=== PATIENT | female | born 1985 | race Caucasian/White ===

== ENCOUNTER 2019-05-06 21:39 | Emergency (ER) | payer BC ==
[~2019-05-06] VITALS: Ht 160 cm; Wt 59.0 kg
[~2019-05-06 21:39] MED LIST: AMBIEN10 MG ORAL; ATIVAN2 MG ORAL; IBUPROFEN600 MG ORAL; LEXAPRO10 MG ORAL; NITROFURANTOIN100 M2 ORAL; XANAX2 MG ORAL; ZOFRAN ODT4 MG ORAL
[2019-05-06 21:41] VITALS: BP 138/62
--- NOTE | 2019-05-06 21:41 | NUR ---
ED Nurse Note: Walk-in patient presents with complaints of cough and vomiting. Patient, accompanied by her mother, is A&Ox4, ambulatory with steady gait. Will continue to monitor.
[2019-05-06 22:39] LABS: APPEARANCE,URINE CLEAR; BASOPHILS % (AUTO) 0.7 % (0.0-2.0); BILIRUBIN, URINE NEGATIVE (NEGATIVE); COLOR,URINE PALE YELLOW; EOSINOPHILS % (AUTO) 1.2 % (0.0-3.0); GLUCOSE, URINE (UA) NEGATIVE (NEGATIVE); HEMATOCRIT 39.9 % (37.0-47.0); HEMOGLOBIN 14.6 G/DL (12.0-16.0); KETONES,URINE NEGATIVE (NEGATIVE); LEUKOCYTE ESTERASE ,URINE NEGATIVE (NEGATIVE); LYMPHOCYTES % (AUTO) 34.3 % (20.0-45.0); MEAN CORPUSCULAR VOLUME 87 FL (80-99); MONOCYTES % (AUTO) 8.4 % (1.0-10.0); NEUTROPHILS % (AUTO) 55.5 % (45.0-75.0); NITRITE,URINE NEGATIVE (NEGATIVE); PH,URINE 6 (4.5-8.0); PLATELET COUNT 272 K/UL (150-450); PROTEIN,URINE NEGATIVE (NEGATIVE); RED CELL DISTRIBUTION WIDTH 9.5 % (11.6-14.8); UROBILINOGEN,URINE NORMAL MG/DL (0.0-1.0); WHITE BLOOD COUNT 8.4 K/UL (4.8-10.8)
[2019-05-06 22:50] LABS: ANION GAP 11 mmol/L (5-15); BLOOD UREA NITROGEN 9 mg/dL (7-18); CALCIUM 8.7 MG/DL (8.5-10.1); CARBON DIOXIDE 23 MMOL/L (21-32); CHLORIDE 110 MMOL/L (98-107); CREATININE 0.8 MG/DL (0.55-1.30); POTASSIUM 3.6 MMOL/L (3.5-5.1); SODIUM 144 MMOL/L (136-145)
[2019-05-06 22:55] LABS: ALANINE AMINOTRANSFERASE 29 U/L (12-78); ALBUMIN 3.8 G/DL (3.4-5.0); ALBUMIN/GLOBULIN RATIO 1.1 (1.0-2.7); ALKALINE PHOSPHATASE 67 U/L (46-116); ASPARTATE AMINO TRANSFERASE 13 U/L (15-37); BILIRUBIN,TOTAL 0.3 MG/DL (0.2-1.0)
--- NOTE | 2019-05-06 23:02 | Emergency Room Report ---
History of Present Illness General Chief Complaint: General Complaint Source: Patient Present Illness HPI 33-year-old female presents ED for evaluation. Complaining of cough and congestion for the last 2 weeks. States that every time she coughs she throws up. Cough is productive with whitish phlegm. Denies pain. Denies fevers chills. Also states that she is been feeling tingling sensations in her legs and her face. Comes and goes. States she was seen by a neurologist and prescribed gabapentin. States that it did help with her symptoms. States she does have anxiety and has been detoxed from benzos. Denies drug use at this time. No other aggravating relieving factors. Denies any other associated symptoms Allergies: Coded Allergies: No Known Allergies (Unverified , 05/14/13) Patient History Past Medical History: psych hx Past Surgical History: none Pertinent Family History: none Social History: Denies: smoking, alcohol use, drug use Last Menstrual Period: 05/05/19 Now: No Immunizations: UTD Reviewed Nursing Documentation: PMH: Agreed; PSxH: Agreed Nursing Documentation-PMH Past Medical History: No Stated History Hx Seizures: Yes Review of Systems All Other Systems: negative except mentioned in HPI Physical Exam Vital Signs Date Time Temp Pulse Resp B/P (MAP) Pulse Ox O2 Delivery O2 Flow Rate FiO2 05/06/19 21:41 98.2 122 16 138/62 (87) 100 Room Air Sp02 EP Interpretation: reviewed, normal General Appearance: no apparent distress, alert, GCS 15, non-toxic Head: normocephalic, atraumatic Eyes: bilateral eye normal inspection, bilateral eye PERRL ENT: hearing grossly normal, normal pharynx, no angioedema, normal voice Neck: full range of motion, supple/symm/no masses Respiratory: chest non-tender, lungs clear, normal breath sounds, speaking full sentences Cardiovascular #1: regular rate, rhythm, no edema Cardiovascular #2: 2+ carotid (R), 2+ carotid (L), 2+ radial (R), 2+ radial (L) , 2+ dorsalis pedis (R), 2+ dorsalis pedis (L) Gastrointestinal: normal bowel sounds, non tender, soft, non-distended, no guarding, no rebound Rectal: deferred Genitourinary: normal inspection, no CVA tenderness Musculoskeletal: back normal, gait/station normal, normal range of motion, non- tender Neurologic: alert, oriented x3, responsive, motor strength/tone normal, sensory intact, speech normal Psychiatric: judgement/insight normal, memory normal, mood/affect normal, no suicidal/homicidal ideation, anxious Reflexes: 3+ bicep (R), 3+ bicep (L), 3+ tricep (R), 3+ tricep (L), 3+ knee (R) , 3+ knee (L) Lymphatic: no adenopathy Medical Decision Making Diagnostic Impression: Primary Impression: Anxiety Additional Impressions: Gastritis Qualified Codes: K29.20 - Alcoholic gastritis without bleeding Atypical pneumonia ER Course Hospital Course 33 yo F presents with cough x 3 weeks, vomiting. tingling sensation to feet and face. Differential diagnoses include: anxiety, dehydration, atypical pneumonia, gastritis Clinical course Patient placed on stretcher. on threat monitoring analyst. After initial history and physical I ordered labs, chest x-ray, zofran, pepcid labs reviewed- no leukocytosis, hemoglobin/hematocrit stable, troponins negative , electrolytes okay, UA negative, UDS negative, + ETOH CXR - no focal consolidation, no acute process Upon reassessment patient is observed feeling better. Discussed findings with patient and mother. Labs unremarkable. Vitals stable. No focal consolidation. I do believe her symptoms are likely related to her anxiety however given history of a persistent cough we will treat with antibiotics. Patient states she will follow-up with her psychiatrist I. I feel this is a highly complex case requiring extensive working including EKG/Rhythm strip, Xray/CT/US, Blood/urine lab work, repeat exams while in ED, and administration of strong opiates/narcotics for pain control, admission to hospital or close patient follow up. Diagnosis - anxiety, gastritis, atypical pneumonia Stable and discharged to home with Rx amoxicillin, zantac, zofran. Followup with PMD. Return to ED if symptoms recur or worse Labs Test 05/06/19 22:25 White Blood Count 8.4 K/UL (4.8-10.8) Red Blood Count 4.60 M/UL (4.20-5.40) Hemoglobin 14.6 G/DL (12.0-16.0) Hematocrit 39.9 % (37.0-47.0) Mean Corpuscular Volume 87 FL (80-99) Mean Corpuscular Hemoglobin 31.8 PG (27.0-31.0) Mean Corpuscular Hemoglobin Concent 36.6 G/DL (32.0-36.0) Red Cell Distribution Width 9.5 % (11.6-14.8) Platelet Count 272 K/UL (150-450) Mean Platelet Volume 8.4 FL (6.5-10.1) Neutrophils (%) (Auto) 55.5 % (45.0-75.0) Lymphocytes (%) (Auto) 34.3 % (20.0-45.0) Monocytes (%) (Auto) 8.4 % (1.0-10.0) Eosinophils (%) (Auto) 1.2 % (0.0-3.0) Basophils (%) (Auto) 0.7 % (0.0-2.0) Urine Color Pale yellow Urine Appearance Clear Urine pH 6 (4.5-8.0) Urine Specific Currie 1.010 (1.005-1.035) Urine Protein Negative (NEGATIVE) Urine Glucose (UA) Negative (NEGATIVE) Urine Ketones Negative (NEGATIVE) Urine Blood 3+ (NEGATIVE) Urine Nitrite Negative (NEGATIVE) Urine Bilirubin Negative (NEGATIVE) Urine Urobilinogen Normal MG/DL (0.0-1.0) Urine Leukocyte Esterase Negative (NEGATIVE) Urine RBC 2-4 /HPF (0 - 2) Urine WBC 0-2 /HPF (0 - 2) Urine Squamous Epithelial Cells Moderate /LPF (NONE/OCC) Urine Bacteria Few /HPF (NONE) Urine HCG, Qualitative Negative (NEGATIVE) Sodium Level 144 MMOL/L (136-145) Potassium Level 3.6 MMOL/L (3.5-5.1) Chloride Level 110 MMOL/L (98-107) Carbon Dioxide Level 23 MMOL/L (21-32) Anion Gap 11 mmol/L (5-15) Blood Urea Nitrogen 9 mg/dL (7-18) Creatinine 0.8 MG/DL (0.55-1.30) Estimat Glomerular Filtration Rate > 60 mL/min (>60) Glucose Level 128 MG/DL (74-106) Calcium Level 8.7 MG/DL (8.5-10.1) Total Bilirubin 0.3 MG/DL (0.2-1.0) Aspartate Amino Transf (AST/SGOT) 13 U/L (15-37) Alanine Aminotransferase (ALT/SGPT) 29 U/L (12-78) Alkaline Phosphatase 67 U/L (46-116) Total Protein 7.3 G/DL (6.4-8.2) Albumin 3.8 G/DL (3.4-5.0) Globulin 3.5 g/dL Albumin/Globulin Ratio 1.1 (1.0-2.7) Salicylates Level 0.4 ug/mL (2.8-20) Urine Opiates Screen Negative (NEGATIVE) Acetaminophen Level < 2 MCG/ML (10-30) Urine Barbiturates Screen Negative (NEGATIVE) Phencyclidine (PCP) Screen Negative (NEGATIVE) Urine Amphetamines Screen Negative (NEGATIVE) Urine Benzodiazepines Screen Negative (NEGATIVE) Urine Cocaine Screen Negative (NEGATIVE) Urine Marijuana (THC) Screen Negative (NEGATIVE) Serum Alcohol 34 mg/dL Chest X-Ray Diagnostic Results Chest X-Ray Diagnostic Results : Chest X-Ray Ordered: Yes # of Views/Limited/Complete: 1 View Indication: Other - cough EP Interpretation: Yes Interpretation: no consolidation, no effusion, no pneumothorax, no acute cardiopulmonary disease Impression: No acute disease Electronically Signed by: Electronically signed by Dario Arenas MD Last Vital Signs Date Time Temp Pulse Resp B/P (MAP) Pulse Ox O2 Delivery O2 Flow Rate FiO2 05/06/19 21:41 98.2 122 16 138/62 (87) 100 Room Air Status: improved Disposition: HOME, SELF-CARE Condition: Stable Scripts Ranitidine Hcl* (ZANTAC*) 150 Mg Tablet 150 MG ORAL TWICE A DAY, #30 TAB Prov: Dario Arenas MD 05/06/19 Ondansetron Odt* (ZOFRAN ODT*) 4 Mg Tab.rapdis 4 MG BC EVERY 6 HOURS PRN for Nausea & Vomiting, #20 TAB 0 Refills Prov: Dario Arenas MD 05/06/19 Amoxicillin* (AMOXIL*) 500 Mg Capsule 500 MG ORAL THREE TIMES A DAY, #21 CAP Prov: Dario Arenas MD 05/06/19 Dario Arenas MD May 06, 2019 23:02
--- NOTE | 2019-05-06 23:03 | NUR ---
ED Nurse Note: Patient is resting comfortably, talking on the phone to her boyfriend with mother at bedside awaiting lab and CXR results, will continue to monitor, vital signs stable and documented.
[2019-05-06] MEDS ORDERED: RANITIDINE HCL150 MG ORAL (23:29)
[2019-05-06] MEDS ORDERED: ONDANSETRON ODT4 MG BC (23:29)
[2019-05-06] MEDS ORDERED: AMOXICILLIN500 MG ORAL (23:29)
[2019-05-06 23:37] VITALS: BP 138/62
--- NOTE | 2019-05-06 23:37 | NUR ---
ED Nurse Note: Patient cleared for discharge by ERMD. Patient verbalized understanding of discharge instructions. ID band removed, IV removed, patient is A&Ox4, and ambulatory with steady gait. Patient departed with all belongings accompanied by her mother.
--- NOTE | 2019-05-07 15:04 | Diagnostic Imaging Report ---
Indication: Cough Comparison: 07/26/2011 A single view chest radiograph was obtained. Findings: Cardiomediastinal appearance is within normal limits for age. The lungs are clear. Pulmonary vascularity is appropriate. The diaphragmatic contour is smooth and costophrenic angles are sharp. No pleural effusions are identified. The bones are unremarkable. Impression: No acute findings
== END 2019-05-06 23:37 | disposition home or self-care (01) ==
LOC: EMR 22:18
DX: F41.9 Anxiety disorder, unspecified (principal); K29.20 Alcoholic gastritis without bleeding; J18.9 Pneumonia, unspecified organism; G40.909 Epilepsy, unspecified, not intractable, without status epilepticus
CPT/HCPCS: 36415; 71045; 80053; 80307; 81003; 81025; 85025; 96361; 96374; 96375; 99284; G0480; J2405; S0028; J7030

== ENCOUNTER 2019-06-04 01:29 | Emergency (ER) | payer BC ==
[~2019-06-04] VITALS: Ht 167.6 cm; Wt 64.4 kg
[~2019-06-04 01:29] MED LIST changes: +AMOXICILLIN500 MG ORAL; +ONDANSETRON ODT4 MG BC; +RANITIDINE HCL150 MG ORAL
[2019-06-04 01:46] VITALS: BP 134/92
--- NOTE | 2019-06-04 01:46 | NUR ---
ED Nurse Note: Pt walked into ER accompanied by mother from home d/t tingling pain on face and legs. Pt stated she was diagnosed with nerve pain and takes Gabapentin but did not take medication today. Pt aao x 4 and ambulatory. Pt placed on monitor. No acute distress at this time.
--- NOTE | 2019-06-04 02:18 | NUR ---
ED Nurse Note: ERMD at bedside.
[2019-06-04] MEDS ORDERED: LORazepam 1mg tab ORAL ONE (02:30)
[2019-06-04 02:39] VITALS: BP 128/96
--- NOTE | 2019-06-04 02:39 | NUR ---
ER DISCHARGE NOTE: Patient cleared for discharge per ERMD. Patient aao x 4 and ambulatory. Medical devices and ID band removed. Patient given discharge instructions and verbalized understanding. Patient stable upon discharge.
--- NOTE | 2019-06-04 03:20 | Emergency Room Report ---
History of Present Illness General Chief Complaint: Pain Source: Patient, Medical Record Present Illness HPI Patient presents with what she describes as ' iyff-rqu-juupysy' sensation to the facial area Patient reports that she has significant anxiety Denies any headache denies any chest pain denies any vomiting or diarrhea Patient reports that she saw Dr. colon with neurology specialty across the street and was given Neurontin Does not appear to be helping significantly Patient also reports that she is due to be seen by psychiatry and psychologist Patient has several outbursts with her mom at bedside and request her to be removed from the room Allergies: Coded Allergies: DIPHENHYDRAMINE (Verified Allergy, Unknown, 06/04/19) Patient History Past Medical History: see triage record Now: No Reviewed Nursing Documentation: PMH: Agreed; PSxH: Agreed Nursing Documentation-PMH Past Medical History: No History, Except For Hx Neurological Problems: Yes Hx Seizures: Yes Review of Systems All Other Systems: negative except mentioned in HPI Physical Exam Vital Signs Date Time Temp Pulse Resp B/P (MAP) Pulse Ox O2 Delivery O2 Flow Rate FiO2 06/04/19 01:37 98.8 90 18 130/85 (100) 96 Room Air Sp02 EP Interpretation: reviewed, normal General Appearance: no apparent distress Head: normocephalic, atraumatic Eyes: bilateral eye PERRL, bilateral eye EOMI ENT: EOM grossly intact Neck: full range of motion Respiratory: lungs clear, no respiratory distress, no retraction Cardiovascular #1: regular rate, rhythm Gastrointestinal: non tender, soft Musculoskeletal: normal inspection Neurologic: alert, oriented x3 Psychiatric: anxious Skin: no rash Lymphatic: no adenopathy Medical Decision Making Diagnostic Impression: Primary Impression: hyperventilation syndrome ER Course Patient has a fairly benign medical evaluation does appear to be somewhat anxious She also reports feeling' jittery' Patient requesting medication to help her calm Patient and mom also report that she went through a long rehab with benzodiazepine and Ambien However at this time patient requesting an Ativan to help her symptoms She is aware that this can lead to rebound addictive type pathology and requesting the medication Given the close outpatient disposition and outpatient follow-ups Patient was provided medication here emergently and requires close outpatient follow-up Last Vital Signs Date Time Temp Pulse Resp B/P (MAP) Pulse Ox O2 Delivery O2 Flow Rate FiO2 06/04/19 02:39 98.2 97 20 128/96 99 Room Air Status: improved Disposition: HOME, SELF-CARE Condition: Improved Referrals: NON PHYSICIAN (PCP) PMD Patient Instructions: Hyperventilation Additional Instructions: Patient is provided with the discharge instructions notified to follow up with primary doctor in the next 2-3 days otherwise return to the er with any worsening symptoms. Please note that this report is being documented using DRAGON technology. This can lead to erroneous entry secondary to incorrect interpretation by the dictating instrument. Alan Pedraza DO Jun 04, 2019 03:20
== END 2019-06-04 02:39 | disposition home or self-care (01) ==
LOC: EMR 02:30
DX: F45.8 Other somatoform disorders (principal); Z88.8 Allergy status to other drugs, medicaments and biological substances; G40.909 Epilepsy, unspecified, not intractable, without status epilepticus; F41.9 Anxiety disorder, unspecified
CPT/HCPCS: 99282